=== PATIENT | male | born 1995 | race Caucasian/White ===

== ENCOUNTER 2024-03-18 17:15 | Emergency (ER) | payer SELFPAY ==
[2024-03-18 17:48] VITALS: BP 157/99; PULSE 102; RESP 20; TEMP 36.4; O2SAT 99
--- NOTE | 2024-03-18 17:54 | WPDEDEXPGENP ---
HPI - General Ped General Chief complaint: Urogenital-Male Stated complaint: yeast infection? Time Seen by Provider: 03/18/24 17:52 History of Present Illness HPI narrative: 29-year-old male presents to the emergency room for infection on my Richard . Patient states he has got a history of balanitis. Reports redness, swelling and thick cottage cheeselike discharge around his penis. Denies any dysuria, urinary frequency or urgency. Related Data Allergies Allergy/AdvReac Type Severity Reaction Status Date / Time No Known Allergies Allergy Unknown Verified 03/18/24 17:15 Pediatric Review of Systems Review of Systems: ROS unremarkable except for noted in HPI Pediatric Exam Narrative: Physical exam: GENERAL: Well-appearing, well-nourished, no physical limitations, and in no acute distress. HEAD: Normocephalic, atraumatic. EYES: Conjunctivae normal, PERRLA and EOMI. CHEST: Clear to auscultation. No respiratory distress. No wheezes rales or rhonchi. HEART: Regular rate and rhythm. No murmur heard. Normal peripheral pulses. ABDOMEN: Soft, nontender, nondistended, normal active bowel sounds. : erythematous papular rash with thick white discharge to the glans penis, edema to shaft EXTREMITIES: Normal range of motion. No edema. No clubbing or cyanosis SKIN: Warm, dry, no rash. No noted wounds NEURO: No focal deficits. Alert and oriented x3. MAEW. CN's II-XI intact bilaterally, normal gait PSYCH: Cooperative. Normal mood and affect. Course Vital Signs Vital signs: Vital Signs Temperature 36.4 C 03/18/24 17:48 Pulse Rate 102 H 03/18/24 17:48 Respiratory Rate 03/18/24 17:48 Blood Pressure 157/99 H 03/18/24 17:48 Pulse Oximetry 99 03/18/24 17:48 Oxygen Delivery Room Air 03/18/24 17:48 Temperature 36.4 C 03/18/24 17:48 Pulse Rate 102 H 03/18/24 17:48 Respiratory Rate 03/18/24 17:48 Blood Pressure 157/99 H 03/18/24 17:48 Pulse Oximetry 99 03/18/24 17:48 Oxygen Delivery Room Air 03/18/24 17:48 Medical Decision Making Vital Signs Vital Signs: Vital Signs Temperature 36.4 C 03/18/24 17:48 Pulse Rate 102 H 03/18/24 17:48 Respiratory Rate 03/18/24 17:48 Blood Pressure 157/99 H 03/18/24 17:48 Pulse Oximetry 99 03/18/24 17:48 Oxygen Delivery Room Air 03/18/24 17:48 Temperature 36.4 C 03/18/24 17:48 Pulse Rate 102 H 03/18/24 17:48 Respiratory Rate 03/18/24 17:48 Blood Pressure 157/99 H 03/18/24 17:48 Pulse Oximetry 99 03/18/24 17:48 Oxygen Delivery Room Air 03/18/24 17:48 Discharge Plan Discharge Clinical Impression: Balanitis Patient Disposition: Home, Self-Care Condition: Stable Instructions: Antibiotic Reginald Moreland (ED) Prescriptions: New clotrimazole 1 % cream 1 applic topical BID Qty: 45 0RF Follow-up/Referrals: Kinjal Winslow MD [Primary Care Provider] - Time of Disposition: 17:53
== END 2024-03-18 18:25 | disposition home or self-care (01) ==
PROVIDERS: Emergency Provider Nurse Practitioner Family
DX: N48.1 Balanitis (principal)
CPT/HCPCS: 99283

== ENCOUNTER 2024-12-15 13:00 | Emergency (ER) | payer SELFPAY ==
[2024-12-15 13:03] VITALS: BP 125/79; PULSE 84; RESP 16; TEMP 36.8; O2SAT 99
[2024-12-15 14:20] VITALS: BP 122/77; PULSE 76; RESP 16; O2SAT 100
--- NOTE | 2024-12-15 19:15 | ED.EYEPROB ---
HPI - Eye Problem General Chief complaint: Eye Problems Stated complaint: Left eye issues Time Seen by Provider: 12/15/24 13:44 History of Present Illness HPI Narrative: Patient presents with 2 days of left eye redness and irritation with some tearing, denies any recent injuries, no changes to his vision. No sick contacts Related Data Allergies Allergy/AdvReac Type Severity Reaction Status Date / Time No Known Allergies Allergy Unknown Verified 12/15/24 13:01 Review of Systems Review of Systems: All systems reviewed & are unremarkable except as noted in HPI and below Exam Narrative: EXAMINATION OF ORGAN SYSTEMS/BODY AREAS: Constitutional: Vital signs per nursing GENERAL:[No acute distress, non-toxic appearing.] HEAD: Normal with no signs of head trauma. EYES: EOMI, left eye injected conjunctiva, PERRL, no purulent discharge ENT: Hearing grossly intact LUNGS: Nonlabored breathing. HEART: [Regular rate and rhythm] ABD: [Soft], [nontender to palpation] EXT: Normal range of motion SKIN: [No rashes or lesions.] NEURO: [Alert and oriented x 3. No gross focal sensory or strength deficits.] PSYCH: Normal affect Course Vital Signs Vital signs: Vital Signs Temperature 98.2 F 12/15/24 13:03 Pulse Rate 84 12/15/24 13:03 Respiratory Rate 16 12/15/24 13:03 Blood Pressure 125/79 12/15/24 13:03 Pulse Oximetry 99 12/15/24 13:03 Temperature 98.2 F 12/15/24 13:03 Pulse Rate 76 12/15/24 14:20 Respiratory Rate 16 12/15/24 14:20 Blood Pressure 122/77 12/15/24 14:20 Pulse Oximetry 100 12/15/24 14:20 MDM - Eye Problem MDM Narrative Medical decision making narrative: Patient presents with signs symptoms consistent with conjunctivitis, does not were contact lenses, he has normal visual acuity, normal extraocular movements, no signs of preseptal cellulitis, no recent trauma. Will start erythromycin ointment and have him follow up with Ophthalmology in the next 1-2 days with return precautions. Discharge Plan Discharge Clinical Impression: Conjunctivitis Patient Disposition: Home Condition: Stable Instructions: Antibiotic Form, Conjunctivitis (ED) Additional Instructions: Please follow-up with an eye doctor and come back for any further issues especially noticed changes with vision or worsening pain. Patient Language: Wolof Prescriptions: New erythromycin 5 mg/gram (0.5 %) ointment 0.5 inch EACH EYE TID Qty: 3.5 0RF No Action clotrimazole 1 % cream 1 applic topical BID Qty: 45 0RF Follow-up/Referrals: [facility] [Outside] - 2 Days PHYSICIAN,ELECTRICAL ENGINEER MEP [Non-Staff] - Stand Alone Forms: Work/School Release IP
== END 2024-12-15 14:20 | disposition home or self-care (01) ==
LOC: ANHED 13:57
PROVIDERS: Emergency Provider Emergency Medicine
DX: H10.9 Unspecified conjunctivitis (principal)
CPT/HCPCS: 99283